=== PATIENT | female | born 2000 | race Caucasian/White ===

== ENCOUNTER 2022-05-05 14:55 | Emergency (ER) | payer OTHER ==
[~2022-05-05] VITALS: Ht 152.4 cm; Wt 98.8 kg
[2022-05-05 15:01] VITALS: BP 134/109
--- NOTE | 2022-05-05 15:50 | ED GU-Female ---
General Chief Complaint: OB < 20 WEEKS Stated Complaint: 6 WKS PREG- VAGINAL BLEEDING / ABD PAIN Nursing Triage Note: Pt states that she started having light vaginal bleeding 5-7 days ago. The bleeding worsened about 3 days ago and she is passing large clots. LMP 03/26/22, has appt amador Brown on May 22. This is her first . Had Pfizer booster shot on 04/19/22. States that she tried to reach PCP but no call back. Source: patient (PIERCE KELLER) History of Present Illness Date Seen by Provider: May 05, 2022 Time Seen by Provider: 15:45 Initial Comments Patient is that presents for vaginal bleeding and cramping for 5-7 days. 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 She did have a pfizer covid-19 shot on 04/19/22. She does not know her blood type and states that she is not fully saturating a pad when she changes them. Timing/Duration: week Severity/Quality: moderate Location: unknown Radiation: none Activities at Onset: none (PIERCE KELLER) Allergies and Home Medications Patient Home Medication List Home Medication List Reviewed: Yes (PIERCE KELLER) Review of Systems Review of Systems Constitutional: no symptoms reported EENTM: no symptoms reported Respiratory: no symptoms reported Cardiovascular: no symptoms reported Gastrointestinal: see HPI Genitourinary: see HPI : Yes Musculoskeletal: no symptoms reported Skin: no symptoms reported Psychiatric/Neurological: No Symptoms Reported (PIERCE KELLER) Past Fvvopwh-Ckdhdq-Tfbdmy Hx Patient Social History Tobacco Use?: No Use of E-Cig and/or Vaping dev: Yes E-Cig or Vaping type used: Nicotine Use of E-Cig and/or Vaping Bon: Former User Substance use?: No Alcohol Use?: No Pt feels they are or have been: No (PIERCE KELLER) Past Medical History Last Menstrual Period: Mar 26, 2022 (PIERCE KELLER) Physical Exam Vital Signs Vital Signs - First Documented 05/05/22 15:01 Temp 36.3 Pulse 95 Resp 22 B/P (MAP) 134/109 (117) Pulse Ox 97 O2 Delivery Room Air (RYDER MARQUES MD) Vital Signs Capillary Refill : Less Than 3 Seconds (PIERCE KELLER) Height, Weight, BMI Height: '" Weight: lbs. oz. kg; 42.00 BMI Method: General Appearance: WD/WN, no apparent distress HEENT: PERRL/EOMI, normal ENT inspection Neck: non-tender Cardiovascular: regular rate, rhythm Respiratory: chest non-tender, lungs clear, normal breath sounds Gastrointestinal: normal bowel sounds, non tender, soft Back: normal inspection, no CVA tenderness Extremities: normal range of motion, non-tender Neurologic/Psychiatric: cullet washer II-XII nml as tested, no motor/sensory deficits, oriented x 3 Skin: normal color, warm/dry Lymphatic: no adenopathy (PIERCE KELLER) Progress/Results/Core Measures Suspected Sepsis SIRS Temperature: Pulse: 95 Respiratory Rate: 22 Laboratory Tests 05/05/22 15:38: White Blood Count 11.9H Blood Pressure 134 /109 Mean: 117 Laboratory Tests 05/05/22 15:38: Creatinine 0.70, Platelet Count 343, Total Bilirubin 0.4 (PIERCE KELLER) Results/Orders Lab Results Laboratory Tests Test 05/05/22 15:38 Range/Units White Blood Count 11.9 H 4.3-11.0 10^3/uL Red Blood Count 4.59 3.80-5.11 10^6/uL Hemoglobin 12.4 11.5-16.0 g/dL Hematocrit 37 35-52 % Mean Corpuscular Volume 81 80-99 fL Mean Corpuscular Hemoglobin 27 25-34 pg Mean Corpuscular Hemoglobin Concent 34 32-36 g/dL Red Cell Distribution Width 13.2 10.0-14.5 % Platelet Count 343 130-400 10^3/uL Mean Platelet Volume 9.5 9.0-12.2 fL Immature Granulocyte % (Auto) 0 % Neutrophils (%) (Auto) 73 42-75 % Lymphocytes (%) (Auto) 18 12-44 % Monocytes (%) (Auto) 6 0-12 % Eosinophils (%) (Auto) 2 0-10 % Basophils (%) (Auto) 0 0-10 % Neutrophils # (Auto) 8.7 H 1.8-7.8 X 10^3 Lymphocytes # (Auto) 2.2 1.0-4.0 X 10^3 Monocytes # (Auto) 0.8 0.0-1.0 X 10^3 Eosinophils # (Auto) 0.2 0.0-0.3 10^3/uL Basophils # (Auto) 0.0 0.0-0.1 10^3/uL Immature Granulocyte # (Auto) 0.1 0.0-0.1 10^3/uL Sodium Level 137 135-145 MMOL/L Potassium Level 3.7 3.6-5.0 MMOL/L Chloride Level 103 98-107 MMOL/L Carbon Dioxide Level 22 21-32 MMOL/L Anion Gap 12 5-14 MMOL/L Blood Urea Nitrogen 5 L 7-18 MG/DL Creatinine 0.70 0.60-1.30 MG/DL Estimat Glomerular Filtration Rate 125 BUN/Creatinine Ratio 7 Glucose Level 105 70-105 MG/DL Calcium Level 9.2 8.5-10.1 MG/DL Corrected Calcium 9.2 8.5-10.1 MG/DL Total Bilirubin 0.4 0.1-1.0 MG/DL Aspartate Amino Transf (AST/SGOT) 10 5-34 U/L Alanine Aminotransferase (ALT/SGPT) 12 0-55 U/L Alkaline Phosphatase 75 40-136 U/L Total Protein 7.3 6.4-8.2 GM/DL Albumin 4.0 3.2-4.5 GM/DL Human Chorionic Gonadotropin, Quant 4834 H <5 MIU/ML (RYDER MARQUES MD) Vital Signs/I&O Capillary Refill : Less Than 3 Seconds (PIERCE KELLER) Blood Pressure Mean: 117 Departure Communication (Admissions) No definitive IUP identified on US. Missed AB vs ectopic discussed with OB traffic monitor specialist, Dr. Simon. He recommends repeat hcg on Saturday. Patient will call Dr. Brown's clinic Saturday and set up a repeat draw, or come to the ER with any severe changes or worsening of symptoms. (PIERCE KELLER) Impression Primary Impression: Vaginal bleeding in Disposition: HOME, SELF-CARE Condition: Stable Departure-Patient Inst. Decision time for Depature: 17:48 (PIERCE KELLER) Referrals: CLINTON SIMON DO NO,LOCAL PHYSICIAN (PCP) Primary Care Physician Add. Discharge Instructions: Please call Dr. Brown's office on Saturday and explain to them what happened and that you need a repeat hCG test to see if your values are trending up or down. If you cannot get in there, I have also provided you with Dr. Simon's information. All discharge instructions reviewed with patient and/or family. Voiced unde rstanding. ATTENDING PHYSICIAN NOTE: I was physically present as attending physician in the emergency department during the care of this patient, but I was not directly involved in the decision making or delivery of care for this patient. (RYDER MARQUES MD) PIERCE KELLER May 05, 2022 15:50 RYDER MARQUES MD May 06, 2022 19:56
[2022-05-05 15:59] LABS: BASOPHILS % (AUTO) 0 % (0-10); EOSINOPHILS # (AUTO) 0.2 10^3/uL (0.0-0.3); EOSINOPHILS % (AUTO) 2 % (0-10); HEMATOCRIT 37 % (35-52); HEMOGLOBIN 12.4 g/dL (11.5-16.0); LYMPHOCYTES # (AUTO) 2.2 X 10^3 (1.0-4.0); LYMPHOCYTES % (AUTO) 18 % (12-44); MEAN CORPUSCULAR HEMOGLOBIN 27 pg (25-34); MEAN CORPUSCULAR HGB CONC 34 g/dL (32-36); MEAN CORPUSCULAR VOLUME 81 fL (80-99); MEAN PLATELET VOLUME 9.5 fL (9.0-12.2); MONOCYTES # (AUTO) 0.8 X 10^3 (0.0-1.0); MONOCYTES % (AUTO) 6 % (0-12); NEUTROPHILS # (AUTO) 8.7 X 10^3 (1.8-7.8); NEUTROPHILS % (AUTO) 73 % (42-75); PLATELET COUNT 343 10^3/uL (130-400); WHITE BLOOD COUNT 11.9 10^3/uL (4.3-11.0)
[2022-05-05 16:00] LABS: POTASSIUM 3.7 MMOL/L (3.6-5.0)
[2022-05-05 16:01] LABS: CALCIUM 9.2 MG/DL (8.5-10.1)
[2022-05-05 16:03] LABS: TOTAL PROTEIN 7.3 GM/DL (6.4-8.2)
[2022-05-05 16:05] LABS: BILIRUBIN,TOTAL 0.4 MG/DL (0.1-1.0)
[2022-05-05 16:06] LABS: CREATININE SERUM 0.7 MG/DL (0.60-1.30)
--- NOTE | 2022-05-05 17:39 | Diagnostic Imaging Report ---
INDICATION: Vaginal bleeding. Positive test with an hCG of 4834. FINDINGS: Imaging of the uterus demonstrates endometrial thickening but no identifiable intrauterine gestational sac. The right ovary measures 2.5 x 3.7 x 2.4 cm. The left ovary could not be sonographically identified. There does appear to be some pelvic free fluid. IMPRESSION: An intrauterine gestation cannot be identified. An ectopic therefore remains within the differential considerations. There is no sonographic demonstration of an adnexal or tubal mass. Left ovary could not be identified. The right ovary appears normal. Note is made of pelvic free fluid. As an ectopic is not confirmed, the differential considerations at this time include a spontaneous miscarriage but continued evaluation with quantitative beta hCGs should be performed with repeat sonographic imaging performed, as clinically indicated. Dictated by: Dictated on workstation # [id number]
== END 2022-05-05 17:56 | disposition home or self-care (01) ==
LOC: ER 14:58
DX: O20.9 Hemorrhage in early pregnancy, unspecified (principal); Z87.891 Personal history of nicotine dependence; Z3A.01 Less than 8 weeks gestation of pregnancy
CPT/HCPCS: 36415; 76801; 76817; 80053; 84702; 85025; 86900; 86901

== ENCOUNTER 2022-05-31 19:12 | Emergency (ER) | payer MEDICAID, OTHER ==
[~2022-05-31] VITALS: Ht 152.4 cm; Wt 104.3 kg
[2022-05-31 20:48] VITALS: BP 138/99
[2022-05-31 21:26] LABS: BILIRUBIN,URINE NEGATIVE (NEGATIVE); CLARITY,URINE CLEAR; COLOR,URINE YELLOW; GLUCOSE, URINE (UA) NEGATIVE (NEGATIVE); KETONES,URINE NEGATIVE (NEGATIVE); LEUKOCYTE ESTERASE ,URINE 3+ (NEGATIVE); NITRITE,URINE NEGATIVE (NEGATIVE); PROTEIN,URINE NEGATIVE (NEGATIVE)
[2022-05-31 21:36] LABS: BASOPHILS % (AUTO) 0 % (0-10); EOSINOPHILS # (AUTO) 0.5 10^3/uL (0.0-0.3); EOSINOPHILS % (AUTO) 5 % (0-10); HEMATOCRIT 39 % (35-52); HEMOGLOBIN 12.6 g/dL (11.5-16.0); LYMPHOCYTES # (AUTO) 2.9 10^3/uL (1.0-4.0); LYMPHOCYTES % (AUTO) 27 % (12-44); MEAN CORPUSCULAR HEMOGLOBIN 27 pg (25-34); MEAN CORPUSCULAR HGB CONC 33 g/dL (32-36); MEAN CORPUSCULAR VOLUME 81 fL (80-99); MEAN PLATELET VOLUME 9.6 fL (9.0-12.2); MONOCYTES # (AUTO) 0.7 10^3/uL (0.0-1.0); MONOCYTES % (AUTO) 7 % (0-12); NEUTROPHILS # (AUTO) 6.3 10^3/uL (1.8-7.8); NEUTROPHILS % (AUTO) 61 % (42-75); PLATELET COUNT 412 10^3/uL (130-400); WHITE BLOOD COUNT 10.5 10^3/uL (4.3-11.0)
[2022-05-31 21:43] LABS: AMPHETAMINE SCREEN, URINE NEGATIVE (NEGATIVE); BARBITURATE SCREEN URINE NEGATIVE (NEGATIVE); BENZODIAZEPINES SCREEN URINE NEGATIVE (NEGATIVE); CANNABINOID SCREEN, URINE NEGATIVE (NEGATIVE); COCAINE SCREEN URINE NEGATIVE (NEGATIVE); METHADONE STAT NEGATIVE (NEGATIVE); OPIATE SCREEN URINE NEGATIVE (NEGATIVE); OXYCODONE STAT NEGATIVE (NEGATIVE); PROPOXYPHENE STAT NEGATIVE (NEGATIVE); TRICYCLIC ANTIDEPRESSANTS SCRE NEGATIVE (NEGATIVE)
[2022-05-31] MEDS ORDERED: ONDANSETRON 4 MG/2 ML (SDV) Z0FRAN IVP ONE (22:00)
[2022-05-31] MEDS ORDERED: LACTATED RINGERS 1,000 ML IV ONE (22:00)
[2022-05-31 22:02] LABS: ALBUMIN 4.4 GM/DL (3.2-4.5); BILIRUBIN,TOTAL 0.2 MG/DL (0.1-1.0); CALCIUM 9.8 MG/DL (8.5-10.1); CREATININE SERUM 0.81 MG/DL (0.60-1.30); POTASSIUM 3.9 MMOL/L (3.6-5.0); TOTAL PROTEIN 8.1 GM/DL (6.4-8.2)
[2022-05-31 22:02] LABS: RBC,URINE 0-2 /HPF
[2022-05-31 22:03] LABS: BACTERIA,URINE MODERATE /HPF
[2022-05-31] MEDS ORDERED: KETOROLAC 30 MG/ML VIAL IVP STA (22:20)
[2022-05-31] MEDS ORDERED: cefTRIAXone 1 GM PRE-MIX 50 ML IV STA (22:20)
[2022-06-01] MEDS ORDERED: CIPR500T5 PO (02:17)
[2022-06-01] MEDS ORDERED: ONDA4TAB11 PO (02:17)
--- NOTE | 2022-06-01 02:17 | ED Abdominal Pain ---
General Chief Complaint: Abdominal/GI Problems Stated Complaint: R SIDE PAIN - BACK PAIN - DIZZY Nursing Triage Note: PATIENT STATES THAT APPROX. 3 DAYS AGO SHE BEGAN TO EXPERIENCE RIGHT SIDED ABD PAIN THAT TRAVELS TO HER BACK. SHE STATES THAT APPROX. 6 MO AGO SHE HAD A SIMILAR EXPERIENCE AND IT WAS DETERMINED AT THAT TIME THAT HER APPENDIX DID NOT NEED TO BE REMOVED. HER LAST BM WAS EARLIER TODAY AND SHE STATES THAT IT WAS NORMAL. SHE DENIES FEVER. Allergies and Home Medications Allergies Coded Allergies: nut - unspecified (Verified Allergy, Severe, 05/31/22) HAS EPI-PEN FOR NUT ALLERGY Past Dxxgwkb-Klpinr-Pcfjjf Hx Patient Social History Tobacco Use?: No Substance use?: No Alcohol Use?: No Pt feels they are or have been: No Immunizations Up To Date Influenza Vaccine Up-to-Date: No; Not Current Past Medical History Last Menstrual Period: Apr 30, 2022 Physical Exam Vital Signs Vital Signs - First Documented 05/31/22 20:48 Temp 36.4 Pulse 93 Resp 20 B/P (MAP) 138/99 (112) Pulse Ox 99 O2 Delivery Room Air Capillary Refill : Less Than 3 Seconds Height/Weight/BMI Height: '" Weight: lbs. oz. kg; 44.00 BMI Method: Progress/Results/Core Measures Results/Orders Lab Results Laboratory Tests Test 05/31/22 21:15 05/31/22 21:28 Range/Units Urine Color YELLOW Urine Clarity CLEAR Urine pH 6.0 5-9 Urine Specific [place] 1.020 1.016-1.022 Urine Protein NEGATIVE NEGATIVE Urine Glucose (UA) NEGATIVE NEGATIVE Urine Ketones NEGATIVE NEGATIVE Urine Nitrite NEGATIVE NEGATIVE Urine Bilirubin NEGATIVE NEGATIVE Urine Urobilinogen 0.2 < = 1.0 MG/DL Urine Leukocyte Esterase 3+ H NEGATIVE Urine RBC (Auto) TRACE-I H NEGATIVE Urine RBC 0-2 /HPF Urine WBC 10-25 H /HPF Urine Squamous Epithelial Cells 10-25 H /HPF Urine Crystals NONE /LPF Urine Bacteria MODERATE H /HPF Urine Casts NONE /LPF Urine Mucus NEGATIVE /LPF Urine Culture Indicated YES Urine Opiates Screen NEGATIVE NEGATIVE Urine Oxycodone Screen NEGATIVE NEGATIVE Urine Methadone Screen NEGATIVE NEGATIVE Urine Propoxyphene Screen NEGATIVE NEGATIVE Urine Barbiturates Screen NEGATIVE NEGATIVE Ur Tricyclic Antidepressants Screen NEGATIVE NEGATIVE Urine Phencyclidine Screen NEGATIVE NEGATIVE Urine Amphetamines Screen NEGATIVE NEGATIVE Urine Methamphetamines Screen NEGATIVE NEGATIVE Urine Benzodiazepines Screen NEGATIVE NEGATIVE Urine Cocaine Screen NEGATIVE NEGATIVE Urine Cannabinoids Screen NEGATIVE NEGATIVE White Blood Count 10.5 4.3-11.0 10^3/uL Red Blood Count 4.74 3.80-5.11 10^6/uL Hemoglobin 12.6 11.5-16.0 g/dL Hematocrit 39 35-52 % Mean Corpuscular Volume 81 80-99 fL Mean Corpuscular Hemoglobin 27 25-34 pg Mean Corpuscular Hemoglobin Concent 33 32-36 g/dL Red Cell Distribution Width 13.2 10.0-14.5 % Platelet Count 412 H 130-400 10^3/uL Mean Platelet Volume 9.6 9.0-12.2 fL Immature Granulocyte % (Auto) 0 % Neutrophils (%) (Auto) 61 42-75 % Lymphocytes (%) (Auto) 27 12-44 % Monocytes (%) (Auto) 7 0-12 % Eosinophils (%) (Auto) 5 0-10 % Basophils (%) (Auto) 0 0-10 % Neutrophils # (Auto) 6.3 1.8-7.8 10^3/uL Lymphocytes # (Auto) 2.9 1.0-4.0 10^3/uL Monocytes # (Auto) 0.7 0.0-1.0 10^3/uL Eosinophils # (Auto) 0.5 H 0.0-0.3 10^3/uL Basophils # (Auto) 0.0 0.0-0.1 10^3/uL Immature Granulocyte # (Auto) 0.0 0.0-0.1 10^3/uL Sodium Level 138 135-145 MMOL/L Potassium Level 3.9 3.6-5.0 MMOL/L Chloride Level 103 98-107 MMOL/L Carbon Dioxide Level 23 21-32 MMOL/L Anion Gap 12 5-14 MMOL/L Blood Urea Nitrogen 12 7-18 MG/DL Creatinine 0.81 0.60-1.30 MG/DL Estimat Glomerular Filtration Rate 105 BUN/Creatinine Ratio 15 Glucose Level 112 H 70-105 MG/DL Calcium Level 9.8 8.5-10.1 MG/DL Corrected Calcium 9.5 8.5-10.1 MG/DL Total Bilirubin 0.2 0.1-1.0 MG/DL Aspartate Amino Transf (AST/SGOT) 13 5-34 U/L Alanine Aminotransferase (ALT/SGPT) 18 0-55 U/L Alkaline Phosphatase 80 40-136 U/L Total Protein 8.1 6.4-8.2 GM/DL Albumin 4.4 3.2-4.5 GM/DL Amylase Level 49 25-125 U/L Lipase 16 8-78 U/L Serum Test, Qualitative NEGATIVE NEGATIVE My Orders Orders - NICHOL BENAVIDES DO Ed Iv/Invasive Line Start (05/31/22 21:16) Urine Bedside (05/31/22 21:16) Amylase (05/31/22 21:16) Cbc With Automated Diff (05/31/22 21:16) Comprehensive Metabolic Panel (05/31/22 21:16) Drug Screen Stat (Urine) (05/31/22 21:16) Hcg,Qualitative Serum (05/31/22 21:16) Lipase (05/31/22 21:16) Ua Culture If Indicated (05/31/22 21:16) Ed Iv/Invasive Line Start (05/31/22 21:46) Lactated Ringers (Lr 1000 Ml Iv Solution (05/31/22 22:00) Ondansetron Injection (Zofran Injectio (05/31/22 22:00) Urine Culture (05/31/22 21:15) Ct Abd/Pelvis Wo(Kidney Stone) (05/31/22 22:18) Abdomen/Kub 1view (05/31/22 22:18) Ketorolac Injection (Toradol Injection) (05/31/22 22:20) Ceftriaxone 1 Gm Pre-Mix (Rocephin 1 Gm (05/31/22 22:20) Medications Given in ED Current Medications Medications Dose Ordered Sig/Genevieve Route Start Time Stop Time Status Last Admin Dose Admin Lactated Ringer's 1,000 ml @ 0 mls/hr Q0M ONCE IV 05/31/22 22:00 05/31/22 22:01 DC 05/31/22 22:02 0 MLS/HR Ondansetron HCl 4 mg ONCE ONCE IVP 05/31/22 22:00 05/31/22 22:01 DC 05/31/22 22:02 4 MG Vital Signs/I&O 05/31/22 05/31/22 05/31/22 06/01/22 20:48 22:23 23:51 01:17 Temp 36.4 Pulse 93 83 81 Resp 20 18 18 B/P (MAP) 138/99 (112) 135/70 108/51 104/63 Pulse Ox 99 99 97 O2 Delivery Room Air Room Air Room Air 06/01/22 00:00 Intake Total 1050 ml Balance 1050 ml Blood Pressure Mean: 77 Departure Impression Primary Impression: Urinary tract infection Disposition: 01 HOME, SELF-CARE Condition: Improved Departure-Patient Inst. Decision time for Depature: 02:14 Referrals: CHRIS NEWBERRY DO (PCP/Family) Primary Care Physician Patient Instructions: Urinary Tract Infection, Adult (DC) Add. Discharge Instructions: HOME, REST LOTS OF CLEAR LIQUIDS--WATER, BROTH, JELLO, GATORADE BRATS DIET--BANANAS, RICE, APPLESAUCE, TOAST, SALTINES TYLENOL AND MOTRIN NEEDED FOR PAIN OR FEVER FOLLOW UP WITH YOUR DR IN 2-3 DAYS IF NO BETTER, RETURN TO ER IF WORSE All discharge instructions reviewed with patient and/or family. Voiced understanding. Scripts Ondansetron (Ondansetron Odt) 4 Mg Tab.rapdis 4 MG PO Q4H for Nausea/Vomiting, #10 TAB Prov: NICHOL BENAVIDES DO 06/01/22 Ciprofloxacin HCl (Ciprofloxacin HCl) 500 Mg Tablet 500 MG PO BID, #14 TAB Prov: NICHOL BENAVIDES DO 06/01/22 NICHOL BENAVIDES DO Jun 01, 2022 02:17
--- NOTE | 2022-06-01 05:33 | Diagnostic Imaging Report ---
PROCEDURE: CT urinary tract, rule out kidney stone. TECHNIQUE: Multiple contiguous axial images were obtained through the abdomen and pelvis without the use of intravenous contrast. Auto Exposure Controls were utilized during the CT exam to meet ALARA standards for radiation dose reduction. INDICATION: 21-year-old female presents with severe right flank pain. COMPARISONS: None FINDINGS: Lung bases are clear. Cardiac contour is normal. Liver shows uniform attenuation. Gallbladder is nondistended. Spleen and GE junction are normal. Stomach and duodenal sweep are unremarkable. Pancreas shows sharp margins. Adrenals are normal. Kidneys appear normal in size, position and contour. There is no discrete renal or ureteral calculi. Both ureters are seen intermittently through their course and appear unremarkable. Bladder is underfilled but appears unremarkable. There is a right adnexal cyst measuring approximately 3 cm and is most consistent with an ovarian cyst. There is slight prominence with lumpy bumpy contour of the left adnexa including the left ovary. Nonopacified loops of small bowel are unremarkable. There are small calcifications within the appendix but no evidence of inflammation. Large bowel contains fecal material and gas. There is some scattered diverticula with some mild sigmoid diverticulosis but no evidence of acute diverticulitis. Visualized vasculature shows normal caliber of the aorta, iliac and femoral arteries with normal origin of the visceral arteries. Bone windows show no overall gross abnormalities. IMPRESSION: 1. No evidence of cholecystitis, appendicitis or obstructive uropathy. Few calcifications are seen in the appendix but no periappendiceal region stranding to suggest an inflammatory process. 2. Prominent adnexa. There is a 3 cm right ovarian cyst. The left adnexa including the left fallopian tube and ovary extend cephalad above the left psoas. Correlation with ultrasound, and clinical assessment for cervical motion tenderness may be of further value. 3. Few scattered diverticula with some mild sigmoid diverticulosis but no evidence of acute diverticulitis. Additional nonemergent findings as described above. Dictated by: Dictated on workstation # [id number]
--- NOTE | 2022-06-01 07:54 | Diagnostic Imaging Report ---
Indication: Abdominal pain. FINDINGS: KUB. Bowel gas pattern is normal. No organomegaly. No pathologic calcification. No bony abnormalities. IMPRESSION: Normal KUB. Dictated by: Dictated on workstation # [id number]
== END 2022-06-01 03:01 | disposition home or self-care (01) ==
LOC: EDUNIT# 19:12 → ER 19:14
DX: N39.0 Urinary tract infection, site not specified (principal); Z28.310 Unvaccinated for COVID-19
CPT/HCPCS: 36415; 74018; 74176; 80053; 80306; 81000; 82150; 83690; 84703; 85025; 87088

== ENCOUNTER 2022-07-16 21:13 | Emergency (ER) | payer MEDICAID ==
[~2022-07-16] VITALS: Ht 155 cm; Wt 102.0 kg
[~2022-07-16 21:13] MED LIST: CIPR500T5 PO; ONDA4TAB11 PO
--- NOTE | 2022-07-16 21:27 | ED Chest Pain ---
General Stated Complaint: NAUSEA,CP Source: patient Exam Limitations: no limitations History of Present Illness Date Seen by Provider: Jul 16, 2022 Time Seen by Provider: 21:15 Initial Comments 22-year-old female with no pertinent past medical history coming in due to chest pain and near syncope. She was in the shower, hands above head washing her hair when she felt like she was going to blackout. She did not actually pass out. Has had some sharp chest discomfort which has been constant for several hours today. Nothing really seems to make it better or worse. Denies any shortness of breath, fever, cough, history of DVT or PE, cardiac history, or any other concerns. Takes no medicines daily. LMP was 1 day ago. Allergies and Home Medications Allergies Coded Allergies: nut - unspecified (Verified Allergy, Severe, 05/31/22) HAS EPI-PEN FOR NUT ALLERGY Patient Home Medication List Home Medication List Reviewed: Yes Ciprofloxacin HCl (Ciprofloxacin HCl) 500 Mg Tablet, 500 MG PO BID Prescribed by: NICHOL BENAVIDES on 06/01/22216 Ondansetron (Ondansetron Odt) 4 Mg Tab.rapdis, 4 MG PO Q4H Prescribed by: NICHOL BENAVIDES on 06/01/22216 Review of Systems Review of Systems Constitutional: No fever EENTM: No Symptoms Reported Respiratory: No Symptoms Reported Cardiovascular: Chest Pain Gastrointestinal: No Symptoms Reported Genitourinary: No Symptoms Reported Musculoskeletal: no symptoms reported Skin: no symptoms reported Psychiatric/Neurological: No Symptoms Reported Endocrine: No Symptoms Reported Hematologic/Lymphatic: No Symptoms Reported All Other Systems Reviewed Negative Unless Noted: Yes Past Iqxlcqj-Ezahlo-Jrnukh Hx Patient Social History Tobacco Use?: No Past Medical History Surgeries: No Respiratory: No Cardiac: No Neurological: No Reproductive Disorders: No Genitourinary: No Gastrointestinal: No Musculoskeletal: No Endocrine: No HEENT: No Cancer: No Psychosocial: No Integumentary: No Blood Disorders: No Physical Exam Vital Signs Vital Signs - First Documented 07/16/22 21:18 Temp 37.0 Pulse 96 Resp 18 B/P (MAP) 144/85 (104) Pulse Ox 98 O2 Delivery Room Air Capillary Refill : Height, Weight, BMI Height: '" Weight: lbs. oz. kg; 44.00 BMI Method: General Appearance: No Apparent Distress, WD/WN HEENT: PERRL/EOMI, Normal ENT Inspection, Pharynx Normal Neck: Full Range of Motion, Normal Inspection, Non Tender, Supple Respiratory: Chest Non Tender, Lungs Clear, Normal Breath Sounds, No Accessory Muscle Use, No Respiratory Distress Cardiovascular: Regular Rate, Rhythm, No Edema, Normal Peripheral Pulses Gastrointestinal: Normal Bowel Sounds, Non Tender, Soft; No Distended, No Guarding Extremity: Normal Capillary Refill, Normal Inspection, Normal Range of Motion, Non Tender, No Calf Tenderness, No Pedal Edema Neurologic/Psychiatric: Alert, No Motor/Sensory Deficits, Normal Mood/Affect Skin: Normal Color, Warm/Dry Lymphatic: No Adenopathy Progress/Results/Core Measures Results/Orders Lab Results Laboratory Tests Test 07/16/22 21:21 Range/Units White Blood Count 10.3 4.3-11.0 10^3/uL Red Blood Count 4.68 3.80-5.11 10^6/uL Hemoglobin 12.5 11.5-16.0 g/dL Hematocrit 37 35-52 % Mean Corpuscular Volume 80 80-99 fL Mean Corpuscular Hemoglobin 27 25-34 pg Mean Corpuscular Hemoglobin Concent 34 32-36 g/dL Red Cell Distribution Width 12.9 10.0-14.5 % Platelet Count 401 H 130-400 10^3/uL Mean Platelet Volume 9.9 9.0-12.2 fL Immature Granulocyte % (Auto) 0 % Neutrophils (%) (Auto) 61 42-75 % Lymphocytes (%) (Auto) 26 12-44 % Monocytes (%) (Auto) 8 0-12 % Eosinophils (%) (Auto) 4 0-10 % Basophils (%) (Auto) 0 0-10 % Neutrophils # (Auto) 6.3 1.8-7.8 10^3/uL Lymphocytes # (Auto) 2.7 1.0-4.0 10^3/uL Monocytes # (Auto) 0.9 0.0-1.0 10^3/uL Eosinophils # (Auto) 0.4 H 0.0-0.3 10^3/uL Basophils # (Auto) 0.0 0.0-0.1 10^3/uL Immature Granulocyte # (Auto) 0.0 0.0-0.1 10^3/uL Sodium Level 136 135-145 MMOL/L Potassium Level 4.0 3.6-5.0 MMOL/L Chloride Level 100 98-107 MMOL/L Carbon Dioxide Level 26 21-32 MMOL/L Anion Gap 10 5-14 MMOL/L Blood Urea Nitrogen 11 7-18 MG/DL Creatinine 0.67 0.60-1.30 MG/DL Estimat Glomerular Filtration Rate 126 BUN/Creatinine Ratio 16 Glucose Level 115 H 70-105 MG/DL Calcium Level 9.2 8.5-10.1 MG/DL Corrected Calcium 9.3 8.5-10.1 MG/DL Magnesium Level 1.8 1.6-2.4 MG/DL Total Bilirubin 0.2 0.1-1.0 MG/DL Aspartate Amino Transf (AST/SGOT) 14 5-34 U/L Alanine Aminotransferase (ALT/SGPT) 14 0-55 U/L Alkaline Phosphatase 91 40-136 U/L Troponin I < 0.30 <0.30 NG/ML Total Protein 7.6 6.4-8.2 GM/DL Albumin 3.9 3.2-4.5 GM/DL My Orders Orders - ALDO TAVERAS MD Cbc With Automated Diff (07/16/22:23) Magnesium (07/16/22 21:23) Chest 1 View Ap/Pa Only (07/16/22:23) Ekg Tracing (07/16/22:23) Comprehensive Metabolic Panel (07/16/22:) Monitor-Rhythm Ecg Trace Only (07/16/22:23) Ed Iv/Invasive Line Start (07/16/22 21:23) Troponin I Fs (07/16/22:23) Ed Iv/Invasive Line Start (07/16/22:23) Ns Iv 1000 Ml (Sodium Chloride 0.9%) (07/16/22 21:30) Ibuprofen Tablet (Motrin Tablet) (07/16/22 21:30) Medications Given in ED Current Medications Medications Dose Ordered Sig/Genevieve Route Start Time Stop Time Status Last Admin Dose Admin Ibuprofen 600 mg ONCE ONCE PO 07/16/22 21:30 07/16/22 21:31 DC 07/16/22 21:33 600 MG Vital Signs/I&O 07/16/22 21:18 Temp 37.0 Pulse 96 Resp 18 B/P (MAP) 144/85 (104) Pulse Ox 98 O2 Delivery Room Air Progress Progress Note : Progress Note 22-year-old female with above history coming in due to chest pain. ABCs were intact and vitals were stable on presentation. Physical exam reassuring with no focal abnormalities. EKG with no acute ischemic changes. She is low risk for PE per [place] criteria and is PERC negative. Chest x-ray with no acute abnormalities. Troponin negative. She was given ibuprofen for discomfort. Given IV fluids given her near syncopal episode earlier upon standing. She is close to her baseline at this time. I believe she stable for discharge with outpatient follow-up. She was sent home with strict return precautions. Initial ECG Impression Date: Jul 16, 2022 Initial ECG Impression Time: 21:19 Initial ECG Rate: 83 Initial ECG Rhythm: Normal Sinus Comment Narrow QRS, normal axis, no significant ST changes, isolated T wave inversion in lead III Diagnostic Imaging Diagonstic Imaging: Xray Plain Films/CT/US/NM/MRI: chest Comments [facility] [place], [place] NAME: VARUN SAUCEDO [facility] REC#: [id number] PT STATUS: REG ER : 2000 PHYSICIAN: ALDO TAVERAS MD ADMIT DATE: 07/16/22/ER FS Signed Date of Exam:07/16/22 CHEST 1 VIEW AP/PA ONLY EXAMINATION: Chest, one view. HISTORY: Chest pain. COMPARISON: None available. FINDINGS: The lung volumes are normal. No focal consolidation is seen. No large pleural effusion or pneumothorax is seen. The cardiomediastinal silhouette is normal in size and contour. No acute osseous abnormality is seen. IMPRESSION: 1. No acute pleural-parenchymal process. Dictated by: Dictated on workstation # [id number] Dict: 07/16/222139 Trans: 07/16/222142 [id number] Interpreted by: CHRISTIAN CURRAN DO Electronically signed by: CHRISTIAN CURRAN DO 07/16/222142 Departure Impression Primary Impression: Chest pain Qualified Codes: R07.82 - Intercostal pain Additional Impression: Near syncope Disposition: 01 HOME, SELF-CARE Condition: Stable Departure-Patient Inst. Decision time for Depature: 22:10 Referrals: CHRIS NEWBERRY DO (PCP/Family) Primary Care Physician Patient Instructions: Near Fainting (DC) Add. Discharge Instructions: Fortunately it does not appear like you have anything serious such as a heart attack, blood clot, or serious infection. Your heart rate did jump up upon standing, and this typically means mild dehydration which can cause near fainting, particularly if you are in a hot shower room with your hands above your head. Try to push fluids for the next couple of days and follow-up with yo [place] primary physician if things are not improving Work/School Note: Work Release Form Date Seen in the Emergency Department: Jul 16, 2022 Return to Work: Jul 18, 2022 Restrictions: No Restrictions ALDO TAVERAS MD Jul 16, 2022 21:27
[2022-07-16] MEDS ORDERED: IBUPROFEN 600 MG (MOTRIN) TAB PO ONE (21:30)
[2022-07-16] MEDS ORDERED: NS IV 1000 ML 1,000 ML IV SCH (21:30)
[2022-07-16 21:39] LABS: BASOPHILS % (AUTO) 0 % (0-10); EOSINOPHILS # (AUTO) 0.4 10^3/uL (0.0-0.3); EOSINOPHILS % (AUTO) 4 % (0-10); HEMATOCRIT 37 % (35-52); HEMOGLOBIN 12.5 g/dL (11.5-16.0); LYMPHOCYTES # (AUTO) 2.7 10^3/uL (1.0-4.0); LYMPHOCYTES % (AUTO) 26 % (12-44); MEAN CORPUSCULAR HEMOGLOBIN 27 pg (25-34); MEAN CORPUSCULAR HGB CONC 34 g/dL (32-36); MEAN CORPUSCULAR VOLUME 80 fL (80-99); MEAN PLATELET VOLUME 9.9 fL (9.0-12.2); MONOCYTES # (AUTO) 0.9 10^3/uL (0.0-1.0); MONOCYTES % (AUTO) 8 % (0-12); NEUTROPHILS # (AUTO) 6.3 10^3/uL (1.8-7.8); NEUTROPHILS % (AUTO) 61 % (42-75); PLATELET COUNT 401 10^3/uL (130-400); WHITE BLOOD COUNT 10.3 10^3/uL (4.3-11.0)
--- NOTE | 2022-07-16 21:43 | Diagnostic Imaging Report ---
EXAMINATION: Chest, one view. HISTORY: Chest pain. COMPARISON: None available. FINDINGS: The lung volumes are normal. No focal consolidation is seen. No large pleural effusion or pneumothorax is seen. The cardiomediastinal silhouette is normal in size and contour. No acute osseous abnormality is seen. IMPRESSION: 1. No acute pleural-parenchymal process. Dictated by: Dictated on workstation # [id number]
[2022-07-16 22:02] LABS: ALBUMIN 3.9 GM/DL (3.2-4.5); BILIRUBIN,TOTAL 0.2 MG/DL (0.1-1.0); CALCIUM 9.2 MG/DL (8.5-10.1); CREATININE SERUM 0.67 MG/DL (0.60-1.30); MAGNESIUM 1.8 MG/DL (1.6-2.4); TOTAL PROTEIN 7.6 GM/DL (6.4-8.2)
[2022-07-16 22:22] VITALS: BP 117/46
== END 2022-07-16 22:24 | disposition home or self-care (01) ==
LOC: EDUNIT# 21:13 → ER FS 21:14
DX: R55 Syncope and collapse (principal); R07.89 Other chest pain; Z28.310 Unvaccinated for COVID-19
CPT/HCPCS: 36415; 71045; 80053; 83735; 84484; 85025; 93005; 93041

== ENCOUNTER 2022-07-28 17:12 | Emergency (ER) | payer MEDICAID ==
[~2022-07-28] VITALS: Ht 152 cm; Wt 102.0 kg
--- NOTE | 2022-07-28 17:57 | ED Lower Extremity ---
General Chief Complaint: Lower Extremity Stated Complaint: LT ANKLE INJ Nursing Triage Note: LEFT ANKLE PAIN AFTER MISSING A STEP 5 DAYS AGO. PT HAS HER AIR SPLINT ON FROM HOME AND HAS BEEN AMBULATING ON IT. SHE REPORTS IT IS MORE PAINFUL TODAY. Source: patient Exam Limitations: no limitations History of Present Illness Date Seen by Provider: Jul 28, 2022 Time Seen by Provider: 17:35 Initial Comments 22-year-old female patient without history of medical problems presented POV with complaining of injury to left ankle. Patient states she had a fall after missing a step 5 days ago and twisted her left ankle. Patient states she applied ice and use air splint and took ibuprofen with the last ibuprofen last night. Patient states the pain getting worse today and rated her pain 8/10 with not bearing weight and 9/10 with bearing weight. Patient denies other injuries and focal neurodeficit, fever and chills, nausea and vomiting, . Onset: last week Severity: moderate Pain/Injury Location: left ankle Method of Injury: fell, twisted Modifying Factors: Improves With Immobilization, Improves With Pain Medication Allergies and Home Medications Allergies Coded Allergies: nut - unspecified (Verified Allergy, Severe, 05/31/22) HAS EPI-PEN FOR NUT ALLERGY Patient Home Medication List Home Medication List Reviewed: Yes Ciprofloxacin HCl (Ciprofloxacin HCl) 500 Mg Tablet, 500 MG PO BID Prescribed by: NICHOL BENAVIDES on 06/01/22216 Ondansetron (Ondansetron Odt) 4 Mg Tab.rapdis, 4 MG PO Q4H Prescribed by: NICHOL BENAVIDES on 06/01/22216 Review of Systems Constitutional: see HPI EENTM: see HPI Respiratory: see HPI Cardiovascular: see HPI Gastrointestinal: see HPI Genitourinary: see HPI Musculoskeletal: see HPI Skin: see HPI Psychiatric/Neurological: See HPI All Other Systems Reviewed Negative Unless Noted: Yes Past Ziolkxt-Brxpha-Arbqgn Hx Patient Social History Tobacco Use?: No Use of E-Cig and/or Vaping dev: No Substance use?: No Alcohol Use?: No Pt feels they are or have been: No Immunizations Up To Date First/Initial COVID19 Vaccinat: 2020 Second COVID19 Vaccination Mckay: 2020 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 oz. kg; 44.00 BMI Method: General Appearance: WD/WN, no apparent distress HEENT: PERRL/EOMI Neck: non-tender Cardiovascular: regular rate, rhythm, no edema Respiratory: chest non-tender, lungs clear, normal breath sounds, no respiratory distress, no accessory muscle use Back: normal inspection Hips: bilateral hip non-tender Legs: bilateral leg non-tender Knees: bilateral knee non-tender Ankles: right ankle non-tender, right ankle normal inspection, right ankle normal range of motion, right ankle no evidence of injury; left ankle bone tend erness; bilateral ankle deformity, bilateral ankle ecchymosis, bilateral ankle joint effusion, bilateral ankle limited range of motion; left ankle pain, left ankle soft tissue tenderness, left ankle swelling Feet: bilateral foot non-tender Neurologic/Tendon: normal sensation, normal motor functions, normal tendon functions Neurologic/Psychiatric: alert, normal mood/affect Skin: normal color, warm/dry Progress/Results/Core Measures Results/Orders My Orders Orders - TONO ACEVEDO MD Ankle 3 View Left (07/28/22 17:39) Vital Signs/I&O 07/28/22 07/28/22 17:26 18:09 Temp 36.3 36.3 Pulse 107 107 Resp 18 18 B/P (MAP) 149/100 (116) 149/100 Pulse Ox 99 99 Blood Pressure Mean: 116 Progress Progress Note : Progress Note Evaluation of patient in ER showed 22-year-old female patient with injury to lateral side of left ankle 5 days ago and complaining of continuing to have pain even using ibuprofen and air splint. Patient had moderate edema of lateral malleolus and x-ray showed small avulsion fracture of distal fibula that could be acute. Patient informed about test results and advised to continue to use a wrist splint all the time and follow-up with primary care physician or orthopedic physician. Patient did not want pain medication in ER or prescription for pain medication. Diagnostic Imaging Plain Films/CT/US/NM/MRI: ankle Comments X-ray of ankle interpreted by radiologist and reviewed by me and showed: NAME: VARUN SAUCEDO [facility] REC#: [id number] PT STATUS: DEP ER : [id number] PHYSICIAN: TONO ACEVEDO MD ADMIT DATE: 07/28/22/ER FS Signed Date of Exam:07/28/22 ANKLE 3 VIEW LEFT INDICATION: Ankle pain. Fall. FINDINGS: There is a small sliver of ossific density adjacent to the tip of the fibula which may reflect a tiny avulsion. No other fracture is evident. Ankle alignment is normal. There is no widening of the ankle mortise. The talar dome has normal morphology. The bones of the hindfoot demonstrate no acute process. IMPRESSION: Small avulsion off of the tip of the fibula may be acute. No other fracture evident. Ankle alignment is normal. Dictated by: Dictated on workstation # [id number] Dict: 07/28/221802 Trans: 07/28/221926 [facility] [id number] Interpreted by: KADIE GAMBOA MD Electronically signed by: KADIE GAMBOA MD 07/28/221926 Departure Impression Primary Impression: Left ankle sprain Qualified Codes: S93.402A - Sprain of unspecified ligament of left ankle, initial encounter Additional Impressions: Fall (on) (from) other stairs and steps, sequela Closed avulsion fracture of distal fibula Disposition: HOME, SELF-CARE Condition: Stable Admissions Decision to Admit/Date: Jul 28, 2022 Departure-Patient Inst. Decision time for Depature: 18:00 Referrals: CHRIS NEWBERRY DO (PCP) Primary Care Physician Patient Instructions: Sprain (DC) Add. Discharge Instructions: Continue to take ibuprofen and apply ice on your ankle Continue to wear ankle air splint Follow-up with your primary care physician or return to ER as needed All discharge instructions reviewed with patient and/or family. Voiced understanding. TONO ACEVEDO MD Jul 28, 2022 17:57
--- NOTE | 2022-07-28 18:07 | Diagnostic Imaging Report ---
INDICATION: Ankle pain. Fall. FINDINGS: There is a small sliver of ossific density adjacent to the tip of the fibula which may reflect a tiny avulsion. No other fracture is evident. Ankle alignment is normal. There is no widening of the ankle mortise. The talar dome has normal morphology. The bones of the hindfoot demonstrate no acute process. IMPRESSION: Small avulsion off of the tip of the fibula may be acute. No other fracture evident. Ankle alignment is normal. Dictated by: Dictated on workstation # [id number]
[2022-07-28 18:09] VITALS: BP 149/100
== END 2022-07-28 18:09 | disposition home or self-care (01) ==
LOC: EDUNIT# 17:12 → ER FS 17:14
DX: S82.832A Other fracture of upper and lower end of left fibula, initial encounter for closed fracture (principal); S93.402A Sprain of unspecified ligament of left ankle, initial encounter; W10.8XXA Fall (on) (from) other stairs and steps, initial encounter
CPT/HCPCS: 73610

== ENCOUNTER 2023-01-27 14:25 | Emergency (ER) | payer MEDICAID ==
[~2023-01-27] VITALS: Ht 152.4 cm; Wt 108.9 kg
--- NOTE | 2023-01-27 15:18 | ED GU-Female ---
General Chief Complaint: - Reproductive Stated Complaint: EXTENDED PERIOD Nursing Triage Note: PT AMBULATE TO ROOM 06 WITHOUT DIFFICULTY WITH C/O VAGINAL BLEEDING X2 WEEKS. PT REPORTS SHE STARTED HER PERIOD AND THEN IT ENDED. PT STATES THAT VAGINAL BLEEDING STARTED X1 WEEK AFTER PERIORD ENDED AND HAS CONTINUED X2 WEEKS. PT REPORT RIGHT LOWER ABD PAIN. PT STATES SHE HAS NOT CONTACTED AN OB FOR THIS C/O. PT STATES SHE HAS CONTACTED HER PCP AND HAS A APPT FOR "THE MIDDLE OF FEBRUARY". (ASTER ESPARZA) History of Present Illness Date Seen by Provider: Jan 27, 2023 Time Seen by Provider: 14:50 Initial Comments 22 year old female presents for vaginal bleeding since January 12, 2023. She had normal menstrual cycle 12/30/22-01/04/23, then started bleeding again. She denies previous history of abnormal menstrual cycles. She is not on any medications she has not taken oral contraceptives for approximately 8 years. She denies history of STDs or Thyroid problems, but no testing. 1 previous with miscarriage in April 2022. She is sexually active, but not in last few weeks. No previous pelvic/pap smear, other than pelvic exam and US at time of miscarriage in this ED. She denies weakness or other symptoms of anemia. Reports bleeding similar to normal menstrual cycle for her. Reports history of PCOS, has appt in [address] Newberry. Timing/Duration: getting worse Sexual [place] History: less than 2 months ago Associated Symptoms: denies symptoms (ASTER ESPARZA) Allergies and Home Medications Allergies Coded Allergies: nut - unspecified (Verified Allergy, Severe, 05/31/22) HAS EPI-PEN FOR NUT ALLERGY Patient Home Medication List Home Medication List Reviewed: Yes (ASTER ESPARZA) Ciprofloxacin HCl (Ciprofloxacin HCl) 500 Mg Tablet, 500 MG PO BID Prescribed by: NICHOL BENAVIDES on 06/01/22 0217 Nitrofurantoin Monohyd/M-Cryst (Macrobid 100 mg Capsule) 100 Mg Capsule, 1 TAB P O Q12H Prescribed by: ASTER ESPARZA on 01/27/23 170 Norgestrel-Ethinyl Estradiol (Fyx-Lxgrgbji-14 Tablet) 0.3 Mg-30 Mcg Tablet, 1 EACH PO DAILY Prescribed by: ASTER ESPARZA on 01/27/23 170 Ondansetron (Ondansetron Odt) 4 Mg Tab.rapdis, 4 MG PO Q4H Prescribed by: NICHOL BENAVIDES on 06/01/22216 Review of Systems Review of Systems Constitutional: no symptoms reported, see HPI Gastrointestinal: no symptoms reported, see HPI; No abdominal pain, No constipation, No diarrhea, No nausea, No vomiting Genitourinary: see HPI, other (vaginal bleeding since 01/12/2023) : No LMP: Dec 30, 2022 (ASTER ESPARZA) All Other Systemes Reviewed Negative Unless Noted: Yes (ASTER ESPARZA) Past Kphejam-Udragi-Qkoccp Hx Patient Social History Tobacco Use?: No Smoking Status: Never a Smoker Smokeless Tobacco Frequency: Never a User Use of E-Cig and/or Vaping dev: Yes E-Cig or Vaping type used: Nicotine Use of E-Cig and/or Vaping Bon: Light User Substance use?: No Alcohol Use?: No Pt feels they are or have been: No (ASTER ESPARZA) Immunizations Up To Date First/Initial COVID19 Vaccinat: 2020 Second COVID19 Vaccination Mckay: 2020 (ASTER ESPARZA) Past Medical History Surgeries: No Respiratory: No Cardiac: No Neurological: No Hx : 1 Hx Para: 0 Hx Total # of Abortions (Sp): 1 Reproductive Disorders: Yes Female Reproductive Disorders: Polycystic Ovarian Dis Genitourinary: No Gastrointestinal: No Musculoskeletal: No Endocrine: No HEENT: No Cancer: No Psychosocial: No Integumentary: No Blood Disorders: No (ASTER ESPARZA) Family Medical History Reviewed and Corrections made (ASTER ESPARZA) Physical Exam Vital Signs Vital Signs - First Documented 01/27/23 01/27/23 14:37 17:10 Temp 36.4 Pulse 96 Resp 18 B/P (MAP) 132/116 (121) Pulse Ox 100 O2 Delivery Room Air (RYDER MARQUES MD) Vital Signs Capillary Refill : Less Than 3 Seconds (ASTER ESPARZA) Height, Weight, BMI Height: '" Weight: lbs. oz. kg; 46.00 BMI Method: General Appearance: WD/WN, no apparent distress Cardiovascular: normal peripheral pulses, regular rate, rhythm, no murmur Respiratory: chest non-tender, lungs clear, normal breath sounds Gastrointestinal: normal bowel sounds, non tender, soft; No guarding, No rebound, No tenderness Extremities: normal range of motion, non-tender, normal inspection Neurologic/Psychiatric: no motor/sensory deficits, alert, normal mood/affect, oriented x 3 Skin: normal color, warm/dry (VILMA,ASTER RESERVATIONS SALES AGENT) Progress/Results/Core Measures Suspected Sepsis SIRS Temperature: Pulse: 96 Respiratory Rate: 18 Laboratory Tests 01/27/23 16:04: White Blood Count 9.5 Blood Pressure 132 /116 Mean: 121 Laboratory Tests 01/27/23 16:04: Creatinine 0.71, Platelet Count 353, Total Bilirubin 0.3 (VILMA,ASTER RES[employer]ATIONS SALES AGENT) Results/Orders Lab Results Laboratory Tests Test 01/27/23 15:31 01/27/23 16:04 Range/Units Urine Color YELLOW Urine Clarity CLEAR Urine pH 8.0 5-9 Urine Specific [place] 1.020 1.016-1.022 Urine Protein 2+ H NEGATIVE Urine Glucose (UA) NEGATIVE NEGATIVE Urine Ketones NEGATIVE NEGATIVE Urine Nitrite NEGATIVE NEGATIVE Urine Bilirubin 1+ H NEGATIVE Urine Urobilinogen 0.2 < = 1.0 MG/DL Urine Leukocyte Esterase TRACE H NEGATIVE Urine RBC (Auto) 3+ H NEGATIVE Urine RBC 10-25 H /HPF Urine WBC 2-5 /HPF Urine Squamous Epithelial Cells 10-25 H /HPF Urine Crystals PRESENT H /LPF Urine Amorphous Sediment MOD MAHI PHOSPHATE H /LPF Urine Bacteria MODERATE H /HPF Urine Casts NONE /LPF Urine Mucus NEGATIVE /LPF Urine Culture Indicated YES White Blood Count 9.5 4.3-11.0 10^3/uL Red Blood Count 4.91 3.80-5.11 10^6/uL Hemoglobin 12.8 11.5-16.0 g/dL Hematocrit 40 35-52 % Mean Corpuscular Volume 81 80-99 fL Mean Corpuscular Hemoglobin 26 25-34 pg Mean Corpuscular Hemoglobin Concent 32 32-36 g/dL Red Cell Distribution Width 13.1 10.0-14.5 % Platelet Count 353 130-400 10^3/uL Mean Platelet Volume 10.0 9.0-12.2 fL Immature Granulocyte % (Auto) 0 % Neutrophils (%) (Auto) 62 42-75 % Lymphocytes (%) (Auto) 27 12-44 % Monocytes (%) (Auto) 6 0-12 % Eosinophils (%) (Auto) 4 0-10 % Basophils (%) (Auto) 0 0-10 % Neutrophils # (Auto) 5.9 1.8-7.8 10^3/uL Lymphocytes # (Auto) 2.6 1.0-4.0 10^3/uL Monocytes # (Auto) 0.6 0.0-1.0 10^3/uL Eosinophils # (Auto) 0.4 H 0.0-0.3 10^3/uL Basophils # (Auto) 0.0 0.0-0.1 10^3/uL Immature Granulocyte # (Auto) 0.0 0.0-0.1 10^3/uL Sodium Level 140 135-145 MMOL/L Potassium Level 4.1 3.6-5.0 MMOL/L Chloride Level 104 98-107 MMOL/L Carbon Dioxide Level 25 21-32 MMOL/L Anion Gap 11 5-14 MMOL/L Blood Urea Nitrogen 7 7-18 MG/DL Creatinine 0.71 0.60-1.30 MG/DL Estimat Glomerular Filtration Rate 122 BUN/Creatinine Ratio 10 Glucose Level 101 70-105 MG/DL Calcium Level 9.5 8.5-10.1 MG/DL Corrected Calcium 9.3 8.5-10.1 MG/DL Total Bilirubin 0.3 0.1-1.0 MG/DL Aspartate Amino Transf (AST/SGOT) 17 5-34 U/L Alanine Aminotransferase (ALT/SGPT) 29 0-55 U/L Alkaline Phosphatase 82 40-136 U/L Total Protein 7.8 6.4-8.2 GM/DL Albumin 4.2 3.2-4.5 GM/DL TSH [place] Testing 2.67 0.35-4.94 UIU/ML (RYDER MARQUES MD) Micro Results Microbiology 01/27/23 Urine Culture - Preliminary, Resulted Slight Growth Present (RYDER MARQUES MD) Vital Signs/I&O Capillary Refill : Less Than 3 Seconds (ASTER ESPARZA) Blood Pressure Mean: 121 Progress Note : Time: 14:50 Progress Note Patient assessed, will obtain labs and reevaluate. 1545 labs reviewed no concerns, H and H 12.8 & 40. No electrolyte abnormalities. Awaiting TSH. Patient denies any new complaints. 1615 TSH 2.34. Urine gonorrhea and Chlamydia are send out labs and results will be called to the patient. [place] for UTI. Options and treatment discussed with the patient. Patient agreeable to starting a low-dose oral contraceptive and follow up with Dr. Newberry. Discharge instructions and return precautions reviewed with her. (ASTER ESPARZA) Departure Impression Primary Impression: Abnormal vaginal bleeding in premenopausal patient Additional Impressions: Metrorrhagia UTI (urinary tract infection) Qualified Codes: N30.01 - Acute cystitis with hematuria Disposition: HOME, SELF-CARE Condition: Improved Departure-Patient Inst. Decision time for Depature: 16:00 (ASTER ESPARZA) Referrals: CHRIS NEWBERRY DO (PCP/Family) Primary Care Physician Patient Instructions: IRREGULAR VAGINAL BLEEDING, Urinary Tract Infection, Adult (DC) Add. Discharge Instructions: Increase water intake. No sexual intercourse, until all labs are complete. Follow up with Dr. Newberry. Take antibiotics, as prescribed. Take Oral Contraception as prescribed. Return to the emergency department for new, urgent healthcare needs. All discharge instructions reviewed with patient and/or family. Voiced understanding. Scripts Norgestrel-Ethinyl Estradiol (Kuz-Fjfyoumu-75 Tablet) 0.3 Mg-30 Mcg Tablet 1 EACH PO DAILY, #1 TAB 3 Refills Prov: ASTER ESPARZA 01/27/23 Nitrofurantoin Monohyd/M-Cryst (Macrobid 100 mg Capsule) 100 Mg Capsule 1 TAB PO Q12H for 5 Days, #10 CAP 0 Refills Prov: ASTER ESPARZA 01/27/23 Work/School Note: Work Release Form Date Seen in the Emergency Department: Jan 27, 2023 Return to Work: Jan 28, 2023 Restrictions: No Restrictions ATTENDING PHYSICIAN NOTE: I was physically present as attending physician in the emergency department during the care of this patient, but I was not directly involved in the decision making or delivery of care for this patient. (RYDER MARQUES MD) Copy Copies To 1: CHRIS NEWBERRY AMY ARNP Jan 27, 2023 15:18 RYDER MARQUES MD Jan 29, 2023 07:11
[2023-01-27 15:41] LABS: CLARITY,URINE CLEAR; COLOR,URINE YELLOW; GLUCOSE, URINE (UA) NEGATIVE (NEGATIVE); KETONES,URINE NEGATIVE (NEGATIVE); LEUKOCYTE ESTERASE ,URINE TRACE (NEGATIVE); NITRITE,URINE NEGATIVE (NEGATIVE); PROTEIN,URINE 2+ (NEGATIVE)
[2023-01-27 15:53] LABS: BILIRUBIN,URINE 1+ (NEGATIVE)
[2023-01-27 15:54] LABS: AMORPHOUS SEDIMENT,UR MOD AMOR PHOSPHATE /LPF; BACTERIA,URINE MODERATE /HPF
[2023-01-27 16:17] LABS: BASOPHILS % (AUTO) 0 % (0-10); EOSINOPHILS # (AUTO) 0.4 10^3/uL (0.0-0.3); EOSINOPHILS % (AUTO) 4 % (0-10); HEMATOCRIT 40 % (35-52); HEMOGLOBIN 12.8 g/dL (11.5-16.0); LYMPHOCYTES # (AUTO) 2.6 10^3/uL (1.0-4.0); LYMPHOCYTES % (AUTO) 27 % (12-44); MEAN CORPUSCULAR HEMOGLOBIN 26 pg (25-34); MEAN CORPUSCULAR HGB CONC 32 g/dL (32-36); MEAN CORPUSCULAR VOLUME 81 fL (80-99); MONOCYTES # (AUTO) 0.6 10^3/uL (0.0-1.0); MONOCYTES % (AUTO) 6 % (0-12); NEUTROPHILS # (AUTO) 5.9 10^3/uL (1.8-7.8); NEUTROPHILS % (AUTO) 62 % (42-75); PLATELET COUNT 353 10^3/uL (130-400); WHITE BLOOD COUNT 9.5 10^3/uL (4.3-11.0)
[2023-01-27 16:32] LABS: ALBUMIN 4.2 GM/DL (3.2-4.5); POTASSIUM 4.1 MMOL/L (3.6-5.0)
[2023-01-27 16:33] LABS: CALCIUM 9.5 MG/DL (8.5-10.1)
[2023-01-27 16:34] LABS: TOTAL PROTEIN 7.8 GM/DL (6.4-8.2)
[2023-01-27 16:36] LABS: BILIRUBIN,TOTAL 0.3 MG/DL (0.1-1.0)
[2023-01-27 16:38] LABS: CREATININE SERUM 0.71 MG/DL (0.60-1.30)
[2023-01-27] MEDS ORDERED: NORG1TAB33 PO ×2 (16:53→17:05)
[2023-01-27] MEDS ORDERED: NITR-65 PO ×2 (16:53→17:04)
[2023-01-27] MEDS ORDERED: NITROFURANTOIN 100 MG (MACROBID) CAPSULE PO STA (16:54)
[2023-01-27 17:00] LABS: TSH (THYROID ANALYZER) 2.67 UIU/ML (0.35-4.94)
[2023-01-27 17:10] VITALS: BP 138/90
[2023-01-30] MEDS ORDERED: AZIT250T12 PO (13:43)
== END 2023-01-27 17:10 | disposition home or self-care (01) ==
LOC: EDUNIT# 14:25 → ER 14:28
DX: N92.4 Excessive bleeding in the premenopausal period (principal); N39.0 Urinary tract infection, site not specified; F17.290 Nicotine dependence, other tobacco product, uncomplicated
CPT/HCPCS: 36415; 80053; 81000; 84443; 84703; 85025; 87088; 87491; 87591; 99283

== ENCOUNTER 2023-06-02 06:43 | Emergency (ER) | payer MEDICAID ==
[~2023-06-02] VITALS: Ht 152.4 cm; Wt 115.8 kg
[~2023-06-02 06:43] MED LIST changes: +AZIT250T12 PO; +NITR-65 PO; +NORG1TAB33 PO
[2023-06-02] MEDS ORDERED: CETI10TA17 PO ×2 (07:09→07:11)
[2023-06-02] MEDS ORDERED: AMOX500C2 PO ×2 (07:09→07:11)
--- NOTE | 2023-06-02 07:10 | ED EENT ---
History of Present Illness General Chief Complaint: Ear Problems Stated Complaint: RIGHT EAR PAIN Nursing Triage Note: Patient states that her right ear has been hurting for approximately 1 week. It has progressively gotten worse and the pain has now spread to the right side of her neck. Patient reports that she is having a hard time controlling the pain she is having. Patient last took Tylenol and Ibuprofen at 18:00 last night. Source: patient Exam Limitations: no limitations History of Present Illness Date Seen by Provider: Jun 02, 2023 Time Seen by Provider: 06:47 Initial Comments 22yoF with no pertinent PMH coming in due to right ear pain. Pain started about a week ago and progressively getting worse. Feels like a throb, sharp at times. Took Tylenol and ibuprofen at 6 PM last night with nothing since. Denies any fever, nausea, vomiting, vision changes, jaw swelling, voice changes, neck pain, or any other concerns. LMP was less than a month ago. Allergies and Home Medications Allergies Coded Allergies: nut - unspecified (Verified Allergy, Severe, 05/31/22) HAS EPI-PEN FOR NUT ALLERGY Patient Home Medication List Home Medication List Reviewed: Yes Amoxicillin (Amoxicillin) 500 Mg Capsule, 1,000 MG PO TID Prescribed by: ALDO TAVERAS on 06/02/23 0709 Azithromycin (Azithromycin) 250 Mg Tablet, 1,000 MG PO ONCE Prescribed by: RYDER NAVA on 01/30/23 1343 Cetirizine HCl (Cetirizine HCl) 10 Mg Tablet, 10 MG PO DAILY Prescribed by: ALDO TAVERAS on 06/02/23 0709 Ciprofloxacin HCl (Ciprofloxacin HCl) 500 Mg Tablet, 500 MG PO BID Prescribed by: NICHOL BENAVIDES on 06/01/22 021 Nitrofurantoin Monohyd/M-Cryst (Macrobid 100 mg Capsule) 100 Mg Capsule, 1 TAB PO Q12H Prescribed by: ASTER ESPARZA on 01/27/23 170 Norgestrel-Ethinyl Estradiol (Jpy-Reeoqthi-11 Tablet) 0.3 Mg-30 Mcg Tablet, 1 EACH PO DAILY Prescribed by: ASTER ESPARZA on 01/27/23 170 Ondansetron (Ondansetron Odt) 4 Mg Tab.rapdis, 4 MG PO Q4H Prescribed by: NICHOL BENAVIDES on 06/01/22216 Review of Systems Review of Systems Constitutional: No fever Eyes: No Symptoms Reported Ears: See HPI Nose: no symptoms reported Mouth: no symptoms reported Throat: no symptoms reported Respiratory: no symptoms reported Cardiovascular: no symptoms reported Past Muqrwea-Ogagjv-Mncrlh Hx Patient Social History Tobacco Use?: No Substance use?: No Alcohol Use?: No Pt feels they are or have been: No Immunizations Up To Date First/Initial COVID19 Vaccinat: 2020 Second COVID19 Vaccination Mckay: 2020 Past Medical History Surgeries: No Respiratory: No Cardiac: No Neurological: No Reproductive Disorders: Yes Female Reproductive Disorders: Polycystic Ovarian Dis Genitourinary: No Gastrointestinal: No Musculoskeletal: No Endocrine: No HEENT: No Cancer: No Psychosocial: No Integumentary: No Blood Disorders: No Physical Exam Vital Signs Vital Signs - First Documented 06/02/23 06:45 Temp 35.2 Pulse 72 Resp 18 B/P (MAP) 158/98 (118) Pulse Ox 98 O2 Delivery Room Air Height, Weight, BMI Height: '" Weight: lbs. oz. kg; 49.00 BMI Method: General Appearance: WD/WN, no apparent distress Eyes: bilateral eye normal inspection, bilateral eye PERRL, bilateral eye EOMI Ears: right ear erythema, right ear TM dull, right ear TM red, right ear TM bulging; left ear TM normal; bilateral ear auricle normal, bilateral ear canal normal Nose: normal inspection Mouth/Throat: normal mouth inspection, pharynx normal Neck: non-tender, full range of motion, supple, normal inspection Cardiovascular: regular rate, rhythm, no edema, no murmur Respiratory: chest non-tender, lungs clear, normal breath sounds, no respirator y distress, no accessory muscle use Neurologic/Psychiatric: no motor/sensory deficits, alert, normal mood/affect Skin: normal color, warm/dry Progress/Results/Core Measures Results/Orders My Orders Orders - ALDO TAVERAS MD Ketorolac Injection (Ketorolac Injection (06/02/23 07:15) Vital Signs/I&O 06/02/23 06:45 Temp 35.2 Pulse 72 Resp 18 B/P (MAP) 158/98 (118) Pulse Ox 98 O2 Delivery Room Air Blood Pressure Mean: 118 Progress Progress Note : Progress Note 22-year-old female with above history coming in due to right ear pain. The right TM is bulging, dull, red, all concerning for acute otitis media. I discussed that this is often viral in adults, but given this has been going on for over a week, more possibility of this being bacterial. We will start her on antibiotics. She has no red flags that would be concerning for deeper space infection or anything malignant. Given a Toradol shot here as well. I believe she stable for discharge with outpatient follow-up. She was sent home with strict return precautions. Departure Impression Primary Impression: Acute otitis media Qualified Codes: H66.001 - Acute suppurative otitis media without spontaneous rupture of ear drum, right ear Disposition: HOME, SELF-CARE Condition: Stable Departure-Patient Inst. Decision time for Depature: 07:15 Referrals: CHRIS NEWBERRY DO (PCP/Family) Primary Care Physician Patient Instructions: Ear Infections (Otitis Media) in Adults (DC) Add. Discharge Instructions: These infections in the area are mostly viral and did not work with antibiotics. However, given this is been going on for now over a week, it is more of a possibility this could be bacterial and antibiotics would help. Continue to take 60 mg of ibuprofen every 6 hours and 1000 mg of Tylenol every 6-8 hours as needed for pain. Follow-up with your regular doctor if you are not seeing improvement in the next 3 days. You will also be on Zyrtec to help with the fluid behind the ear. Scripts Cetirizine HCl (Cetirizine HCl) 10 Mg Tablet 10 MG PO DAILY for 30 Days, #30 TAB Prov: ALDO TAVERAS MD 06/02/23 Amoxicillin (Amoxicillin) 500 Mg Capsule 1000 MG PO TID for 10 Days, #60 CAP 0 Refills Prov: ALDO TAVERAS MD 06/02/23 Work/School Note: Work Release Form Date Seen in the Emergency Department: Jun 02, 2023 Return to Work: Jun 03, 2023 Restrictions: No Restrictions ALDO TAVERAS MD Jun 02, 2023 07:09
[2023-06-02 07:14] VITALS: BP 144/79
[2023-06-02] MEDS ORDERED: KETOROLAC INJ 15 MG/ML VIAL IM ONE (07:15)
== END 2023-06-02 07:14 | disposition home or self-care (01) ==
LOC: EDUNIT# 06:43 → ER FS 06:45
DX: H66.91 Otitis media, unspecified, right ear (principal)
CPT/HCPCS: 99284